=== PATIENT | male | born 1930 | race Caucasian/White ===

== ENCOUNTER 2018-06-28 13:58 | Inpatient (IN) ==
--- NOTE | 2018-06-28 14:19 | EKG Report ---
Test Performed on : 06/28/2018 2:13:28 PM Test Reason : SOB Blood Pressure : / mmHG Vent. Rate : 066 BPM Atrial Rate : 288 BPM P-R Int : 000 ms QRS Dur : 148 ms QT Int : 478 ms P-R-T Axes : 000 102 092 degrees QTc Int : 501 ms Atrial fibrillation. Right bundle branch block Abnormal ECG When compared with ECG of 21-MAY-2018 07:10, (Unconfirmed) Previous ECG has undetermined rhythm, needs review QRS axis shifted right Criteria for Inferior infarct are no longer present Nonspecific T wave abnormality has replaced inverted T waves in Inferior leads Nonspecific T wave abnormality, worse in Lateral leads Unconfirmed Result
--- NOTE | 2018-06-28 14:41 | Diag Imaging Result Doc PS360 ---
EXAM: FLAT/UPRIGHT ABD/1 VIEW CHEST 06/28/2018 HISTORY: SOB/CONSTIPATION TECHNIQUE: Flat and upright abdomen with PA chest COMMENT: The bowel gas pattern is unremarkable. There is a moderate amount of stool present in the colon. This has improved since 06/18/2018. There is a fairly large left pleural effusion. This was also the case at the time the previous study of 06/18/2018. There is a smaller effusion or pleural thickening on the right and there is bibasilar opacity which may include pneumonia. The heart size appears slightly enlarged. IMPRESSION: 1. Improved constipation. 2. Left pleural effusion and bibasilar pneumonia particularly on the left. Electronically signed by José Antonio Jacobson 06/28/2018 2:39 PM
[2018-06-28 15:06] LABS: BASO# 0.03 X1000 (0.0-0.2); BASO% 0.5 % (0.0-0.8); EOS# 0.02 X1000 (0.0-0.7); EOS% 0.4 % (0.0-10.0); HEMATOCRIT 33.7 % (42.0-52.0); HEMOGLOBIN 10.7 g/dL (14.0-18.0); LYMPH# 0.59 X1000 (1.2-3.4); LYMPH% 10.3 % (20.5-51.1); MCH 35.1 PG (27-31); MCHC 31.8 g/dL (33-37); MCV 110.5 FL (81-99); MONO# 0.26 X1000 (0.11-0.59); MONO% 4.6 % (1.7-9.3); MPV 9.3 FL (7.4-10.4); NEUT# 4.81 X1000 (1.4-6.5); NEUT% 84.2 % (42.2-75.2); PLT 170 X1000 (130-400); RBC 3.05 XMIL (4.7-6.1); RDW 13.9 % (11.5-14.5); WBC 5.71 X1000 (4.8-10.8)
[2018-06-28 15:08] LABS: INR 1.37
[2018-06-28 15:09] LABS: ALB/GLOB RATIO 1.3; ALBUMIN 3.6 g/dL (3.5-5.0); CALCIUM 8.6 mg/dL (8.8-10.2); CREATININE 3.2 mg/dL (0.7-1.2); POTASSIUM 4.4 mmol/L (3.5-5.1); PTT 37.6 Seconds (22.3-41.8); TOTAL BILIRUBIN 0.19 mg/dL (0.20-1.00); TOTAL PROTEIN 6.4 g/dL (6.3-8.3)
--- NOTE | 2018-06-28 17:50 | ED EKG INTERP ---
This chart was entered by Nilda Hendricks Scribe, acting as scribe for Shelby Keller MD. EKG Interpretation - EKG Time of EKG reading by physician:: 14:13 EKG Read and Signed by:: Shelby Keller EKG Interpretation (*Must complete 3 of following elements*): Abnormal Rate: 66 Rhythm: atrial fibrillation QRS: RBB Comments: abnormal ECG Attestation - Physician/ ELINA Attestation The physician spent face to face time with patient:: No Advanced Practice Provider documentation review:: Supervising physician onsite and consulted in the evaluation and care of this patient. The physician did not have a face to face encounter with the patient. This chart was documented by the indicated scribe, (Nilda Hendricks Scribe) and accurately reflects the services I performed and decisions made by me, Shelby Keller MD, as attested by the provider's signature.
--- NOTE | 2018-06-28 20:48 | PROVIDER DOCUMENTATION ---
This chart was entered by Jada García Scribe, acting as scribe for Elijah Dale MD. HPI-General Adult - General Chief Complaint: Shortness of Breath Stated Complaint: SHORTNESS OF BREATH / CONSTIPATION Time Seen by Provider: 06/28/18 19:17 Source: patient Allergies/Adverse Reactions: Patient Allergies Allergy/AdvReac Type Severity Reaction Status Date / Time metronidazole [From Flagyl] Allergy Intermediate agitated Verified 05/21/18 07: 07 Metronidazole HCl * Allergy Intermediate agitated Verified 05/21/18 07:07 [From Flagyl] lorazepam [From Ativan] AdvReac Severe agitated Verified 05/21/18 07:07 Sulfa (Sulfonamide AdvReac Unknown Unknown Verified 05/21/18 07:07 Antibiotics) Home Medications: Home Medication List Medication Instructions Recorded Confirmed Last Taken Type Metoprolol Succinate E.r. [Toprol 50 mg PO HS 06/05/12 05/21/18 03/23/17 History Xl] Amiodarone HCl 1 tab PO QAM 03/24/17 05/21/18 03/24/17 History Amlodipine [Norvasc] 10 mg PO QAM 03/24/17 05/21/18 03/24/17 History Cholecalciferol (Vitamin D3) 2,000 unit PO QAM 03/24/17 05/21/18 03/24/17 History [D3-2000] Folic Acid 1 mg PO QAM 03/24/17 05/21/18 03/24/17 History Warfarin [Coumadin] 4 mg PO DAILY 10/15/17 05/21/18 Unknown History Allopurinol 100 mg PO BID 05/21/18 05/21/18 Unknown History Prednisone 5 mg PO DIRECTED 05/21/18 05/21/18 Unknown History - History of Present Illness -Gen Adult Nature of Presenting Problems: Pt is 87/m presenting to ED w/ RUQ pain and SOB. Pt is on dialysis and had treatment yesterday . Pt is on O2 at home. Patient has been constipated x 2 weeks and has been given several medications including magnesium citrate and miralax without improvement. Location of Pain/Injury: reports: abdomen (RUQ) Pain Radiation: reports: no radiation Quality of Pain: reports: aching Severity: reports: moderate Onset/Duration: reports: just prior to arrival Timing: reports: still present Context/Activities at Onset: reports: none Modifying Factors: improves with: nothing Associated Symptoms: reports: denies symptoms. denies: diarrhea, nausea, vomiting Similar Symptoms Previously?: No Recently seen or treated by another doctor?: No Review of Systems - Adult - REVIEW OF SYSTEMS - ADULT Constitutional: reports: no symptoms reported. denies: chills, fever Eyes: reports: no symptoms reported Ears, Nose, Mouth & Throat: reports: no symptoms reported Cardiovascular: reports: no symptoms reported. denies: chest pain, edema Respiratory: reports: shortness of breath. denies: cough, wheezing Gastrointestinal: reports: abdominal pain. denies: diarrhea, nausea, vomiting Genitourinary: reports: no symptoms reported Musculoskeletal: reports: no symptoms reported Integumentary: reports: no symptoms reported Neurological: reports: no symptoms reported. denies: dizziness/vertigo, headache/migraines Psychiatric: reports: no symptoms reported Endocrine: reports: no symptoms reported Hematologic/Lymphatic: reports: no symptoms reported Allergic/Immunologic: reports: no symptoms reported All Other Systems: Reviewed and Negative Past History - Adult - PAST MEDICAL HISTORY-ADULT Review of Records: reports: Old Records Reviewed, Nursing Assessment Review, Medications Reviewed, Social history reviewed & non-contributory. Major Childhood Illnesses: reports: denies history Cardiovascular: reports: cardiac disease, A-Fib, HTN, hyperlipidemia Respiratory: reports: denies history Gastrointestinal: reports: denies history Obstetrical/Gynecological: reports: denies history Genitourinary: reports: dialysis, kidney disease (nephrotic syndrome) Musculoskeletal: reports: denies history Neurological: reports: CVA Psychiatric: reports: denies history Endocrine/Immune: reports: Diabetes Other Conditions: reports: other cancer (skin cancer) - PRIOR SURGERIES/PROCEDURES Surgical/Procedure History: reports: cholecystectomy, indwelling device (AV dialysis shunt), hernia repair, back/neck, other (right carotid artery) - IMMUNIZATION STATUS Childhood Immunizations: See Nurse Assessment Flu Vaccine: See Nurse Assessment - FAMILY HISTORY Family History: reviewed, not pertinent - SOCIAL HISTORY Smoking: quit greater than 1 year Substance Use: none/never Alcohol Use Frequency: never Living Situation: family Physical Exam-General - PHYSICAL EXAM-ADULT Initial Vital Signs Reviewed: Yes - CONSTITUTIONAL General Appearance: alert, thin ("frail"), other (frail looking patient) - EYES Eyes: PERRL/EOMI - HEAD, EARS, NOSE, MOUTH & THROAT HENMT: normocephalic/atraumatic, moist mucous membranes, normal ENT inspection - NECK Neck: non-tender, full range of motion, supple, normal inspection - RESPIRATORY Respiratory: chest non-tender, lungs clear, other (decreased breath sounds bilaterally) - CARDIOVASCULAR Cardiovascular: normal peripheral pulses, regular rate, rhythm, other (trace edema) - GASTROINTESTINAL (ABDOMEN) Abdominal Exam: normal bowel sounds, soft, tenderness (mild in RUQ) - LYMPHATIC Lymphatic: no adenopathy - MUSCULOSKELETAL Back Exam: normal inspection, no CVA tenderness, no vertebral tenderness, CVA tenderness - SKIN Integumentary: normal color, normal turgor, warm/dry - NEUROLOGIC Neurologic: other (hearing deficit) - PSYCHIATRIC Psych/Mental Status: oriented x 3 Progress - PLAN OF CARE/RESULTS Progress/Plan/Lab Results: Vital Signs - 8 hr 06/28/18 14:04 Temperature 97.4 F L Pulse Rate 67 Respiratory Rate 18 Blood Pressure 140/51 O2 Sat by Pulse Oximetry 94 L Laboratory Results - last 24 hr 06/28/18 06/28/18 06/28/18 14:22 14:22 14:22 WBC 5.71 RBC 3.05 L Hgb 10.7 L Hct 33.7 L MCV 110.5 H MCH 35.1 H MCHC 31.8 L RDW Std Deviation 13.9 Plt Count 170 MPV 9.3 Neut % (Auto) 84.2 H Lymph % (Auto) 10.3 L Bowman % (Auto) 4.6 Eos % (Auto) 0.4 Baso % (Auto) 0.5 Neut # (Auto) 4.81 Lymph # (Auto) 0.59 L Bowman # (Auto) 0.26 Eos # (Auto) 0.02 Baso # (Auto) 0.03 PT INR PTT (Actin FS) Sodium 138 Potassium 4.4 Chloride 99 Carbon Dioxide 29 Anion Gap 10 BUN 20 Creatinine 3.2 H Estimated GFR/1.73 m2 18 BUN/Creatinine Ratio 6 Glucose 180 H Calculated Osmolality 283 Calcium 8.6 L Total Bilirubin 0.19 L AST 11 ALT 8 L Alkaline Phosphatase 138 H Creatine Kinase 20 L Troponin T [place]w-[place]-H[place]jrwutcnfu Pe[place] 43368 H Total Protein 6.4 Albumin 3.6 Globulin 2.8 Albumin/Globulin Ratio 1.3 Amylase 113 Lipase 63 H 06/28/18 06/28/18 14:22 14:22 WBC RBC Hgb Hct MCV MCH MCHC RDW Std Deviation Plt Count MPV Neut % (Auto) Lymph % (Auto) Bowman % (Auto) Eos % (Auto) Baso % (Auto) Neut # (Auto) Lymph # (Auto) Bowman # (Auto) Eos # (Auto) Baso # (Auto) PT 18.0 H INR 1.37 PTT (Actin FS) 37.6 Sodium Potassium Chloride Carbon Dioxide Anion Gap BUN Creatinine Estimated GFR/1.73 m2 BUN/Creatinine Ratio Glucose Calculated Osmolality Calcium Total Bilirubin AST ALT Alkaline Phosphatase Creatine Kinase Troponin T 0.027 Wvi-X-Dfkzrtvktvj Pept Total Protein Albumin Globulin Albumin/Globulin Ratio Amylase Lipase Orders Category Date Time Status Cardiac Monitoring DIRECTED Care 06/28/18 14:11 Active Oxygen Therapy- ED Nursing DIRECTED Care 06/28/18 14:11 Active Saline Loc DIRECTED Care 06/28/18 14:18 Active Saline Loc NOW Care 06/28/18 14:11 Active NPO Diet 06/28/18 14:18 Active flat [FLAT/UPRIGHT ABD/1 VIEW CHEST] [RAD] Stat Exams 06/28/18 14:19 Completed AMYLASE [CHEM] Stat Lab 06/28/18 14:22 Completed CBC WITH ELECTRONIC DIFF [HEME] Stat Lab 06/28/18 14:22 Completed CK PROFILE [SP CHEM] Stat Lab 06/28/18 14:22 Completed COMPREHENSIVE METABOLIC PANEL [CHEM] Stat Lab 06/28/18 14:22 Completed LIPASE [CHEM] Stat Lab 06/28/18 14:22 Completed PRO B-NATRIURETIC PEPTIDE Stat Lab 06/28/18 14:22 Completed PROTIME WITH INR [COAG] Stat Lab 06/28/18 14:22 Completed PTT [COAG] Stat Lab 06/28/18 14:22 Completed TROPONIN T Stat Lab 06/28/18 14:22 Completed CP/SOB/Palp >45 yrs of Age Stat Oth 06/28/18 14:11 Ordered EKG [EKG] Stat Ther 06/28/18 14:11 Draft EKG [EKG] Stat Ther 06/28/18 19:28 Ordered Result Diagrams: 06/28/18 14:22 06/28/18 14:22 - XRAY 1 XRAY Study: Chest, Abdomen Impression: Abnormal ( EXAM: FLAT/UPRIGHT ABD/1 VIEW CHEST 06/28/2018 HISTORY: SOB/CONSTIPATION TECHNIQUE: Flat and upright abdomen with PA chest COMMENT: The bowel gas pattern is unremarkable. There is a moderate amount of stool present in the colon. This has improved since 06/18/2018. There is a fairly large left pleural effusion. This was also the case at the time the previous study of 06/18/2018. There is a smaller effusion or pleural thickening on the right and there is bibasilar opacity which may include pneumonia. The heart size appears slightly enlarged. IMPRESSION: 1. Improved constipation. 2. Left pleural effusion and bibasilar pneumonia particularly on the left. Electronically signed by José Antonio Jacobson 06/28/2018 2:39 PM 06/28/18 2468 Interpreting Physician: José Antonio Jacobson MD Dictated Date/Time: 4723) - CONSULTS/PCP/HOSPITALIST Notification #1 *Consult/PCP/Hospitalist*: Dr. Leija Time Discussed: 20:46 Consult Disposition: Admit Departure - Departure Date of Disposition Decision: 06/28/18 Time of Disposition Decision: 20:47 DIAGNOSIS: ESRD (end stage renal disease) on dialysis Constipation Qualifiers: Constipation type: unspecified constipation type Qualified Code(s): K59.00 - Constipation, unspecified Pneumonia Qualifiers: Pneumonia type: due to unspecified organism Laterality: unspecified laterality Lung location: unspecified part of lung Qualified Code(s): J18.9 - Pneumonia, unspecified organism Disposition: ADMITTED INPATIENT 09 Certified Medical Emergency: Emergent Condition: Serious - Critical Care Note This patient required my direct & personal management of CC.: No Attestation - Physician/ ELINA Attestation Patient care was provided by Advanced Practice Provider:: No The physician spent face to face time with patient:: Yes Advanced Practice Provider documentation review:: Supervising physician onsite and consulted in the evaluation and care of this patient. The physician did have a face to face encounter with the patient. This chart was documented by the indicated scribe, (Jada García Scribe) and accurately reflects the services I performed and decisions made by me, Elijah Dale MD, as attested by the provider's signature.
[2018-06-28] MEDS ORDERED: MORPHINE IV ONE (21:30)
[2018-06-28] MEDS ORDERED: ZOFRAN IV PRN (22:01)
[2018-06-28] MEDS: ZOSYN 3.375 GM in NS 50 ML IV SCH (22:50)
[2018-06-29] MEDS: ZOSYN 3.375 GM in NS 50 ML IV SCH ×2 (03:40→10:45)
--- NOTE | 2018-06-29 03:52 | HISTORY AND PHYSICAL ---
PRIMARY CARE PHYSICIAN: Dr. Carr. CHIEF COMPLAINT: Constipation and back pain. HISTORY OF PRESENTING ILLNESS: An 87-year-old elderly male with a history of end-stage renal disease, hypertension, CVA, chronic atrial fibrillation, diabetes mellitus type 2 and gout, who had presented to the emergency department with several days history of having back pain and also constipation for the past 2 weeks or so. The patient states that he was not feeling well. The patient apparently had imaging done in the ED which did show left pleural effusion and bibasilar pneumonia and also constipation. Due to his presenting symptoms, it was thought that he would need admission for further management. At the time of my examination, patient denied any headache, fever, chills, chest pain, hemoptysis or any weight changes, but complained of constipation, and shortness of breath and back pain. PAST MEDICAL HISTORY: Includes end-stage renal disease, hypertension, CVA, chronic atrial fibrillation, diabetes mellitus type 2, gout, hyperlipidemia. PAST SURGICAL HISTORY: Cholecystectomy, back surgery, cataract surgery, right carotid endarterectomy, right forearm AV fistula. ALLERGIES: Ativan, metronidazole. CURRENT MEDICATIONS: Include the following: Allopurinol 100 mg p.o. b.i.d., amiodarone 200 mg p.o. q.a.m., amlodipine 10 mg p.o. q.a.m., folic acid 1 mg p.o. q.a.m., metoprolol 50 mg p.o. at bedtime, prednisone 5 mg as directed, warfarin 4 mg p.o. daily. SOCIAL HISTORY: He is a former smoker. History of alcohol use in the past. Denies any illicit drug use. FAMILY HISTORY: Positive for coronary artery disease in father. REVIEW OF SYSTEMS: A 14 point review of systems as listed in HPI. Other systems negative. PHYSICAL EXAMINATION: GENERAL: Cooperative, friendly elderly male. He is resting more comfortably now. VITAL SIGNS: Temperature 97.4 degrees, pulse 67, respiration 18, blood pressure 140/51. HEENT: Atraumatic, normocephalic. Extraocular movements intact. PERRLA. NECK: No masses. CHEST: Bibasilar rales. CARDIOVASCULAR: Irregular. ABDOMEN: Soft. Positive bowel sounds. EXTREMITIES: Trace edema. NEUROLOGIC: He is awake, alert, oriented x3. GENITOURINARY: No bladder distention. SKIN: Warm. LABORATORIES AND STUDIES: WBCs 5.71, hemoglobin 10.7, hematocrit 33.7, platelets 170,000. INR is 1.37. Sodium 138, potassium 4.4, chloride 99, CO2 is 29, BUN is 20, creatinine is 3.2, glucose is 180. ProBNP is 30,951. Troponin 0.27. Abdominal x-ray shows constipation, left pleural effusion with bibasilar pneumonia. ASSESSMENT: This is an 87-year-old elderly male with a history of end-stage renal disease, hypertension, cerebrovascular accident, chronic atrial fibrillation and diabetes mellitus type 2, who had presented to emergency department with 2 weeks history of constipation and also having back pain. He was evaluated in the emergency department. He had imaging done which did show suspicion for pneumonia. Due to his presenting symptoms, he will need admission for further management. 1. Probable pneumonia with left pleural effusion. 2. Constipation. 3. End-stage renal disease. 4. Chronic atrial fibrillation. 5. Hypertension. 6. Diabetes mellitus type 2. PLAN: 1. We will admit patient to medical floor with telemetry. 2. We will check blood cultures. Start patient on IV antibiotics. 3. Continue with bowel regimen and start enemas with soap suds. 4. Consult Nephrology for dialysis. 5. Continue with anticoagulation with Coumadin. Monitor ProTime and INR. 6. We will monitor blood pressure closely and resume antihypertensive agents. 7. Put patient on glycemic protocol with sliding scale insulin regimen. 8. Put patient on DVT prophylaxis with SCD also. 9. We will continue to follow, and reassess and make further recommendation based on patient's clinical course. cc: Santi Leija MD
[2018-06-29 07:10] LABS: BASO# 0.03 X1000 (0.0-0.2); BASO% 0.5 % (0.0-0.8); EOS# 0.19 X1000 (0.0-0.7); EOS% 3.4 % (0.0-10.0); HEMATOCRIT 32.5 % (42.0-52.0); HEMOGLOBIN 10.2 g/dL (14.0-18.0); IMM GRAN# 0.02 X1000 (0.0-0.04); IMM GRAN% 0.4 % (0.0-0.5); LYMPH# 0.83 X1000 (1.2-3.4); LYMPH% 14.8 % (20.5-51.1); MCHC 31.4 g/dL (33-37); MCV 108.3 FL (81-99); MONO% 8.9 % (1.7-9.3); MPV 9.6 FL (7.4-10.4); NEUT# 4.03 X1000 (1.4-6.5); PLT 177 X1000 (130-400); RDW 13.6 % (11.5-14.5)
[2018-06-29 07:14] LABS: INR 1.46; PROTIME 18.8 Seconds (11.0-16.0)
[2018-06-29] MEDS ORDERED: NS 2,000 ML MISC PRN (07:21)
[2018-06-29] MEDS ORDERED: HEPARIN IV PRN (07:21)
[2018-06-29] MEDS ORDERED: TIGHT: 0.2 ML/HR FOR DIALYSIS MISC PRN (07:21)
[2018-06-29] MEDS: HUMULIN R SUBQ SCH ×4 (07:34→22:40)
[2018-06-29 07:45] LABS: CALCIUM 8.7 mg/dL (8.8-10.2); CREATININE 3.7 mg/dL (0.7-1.2); POTASSIUM 3.7 mmol/L (3.5-5.1)
--- NOTE | 2018-06-29 10:33 | Diag Imaging Result Doc PS360 ---
EXAM: CHEST-2 VIEWS HISTORY: pneumonia TECHNIQUE: Chest two views COMPARISON: 06/28/2018 FINDINGS: There is a moderate-sized left pleural effusion and small right-sided pleural effusion. These are similar to the prior exam. Cardiomegaly and pulmonary edema remain. Pulmonary edema is actually more prominent. There is basilar atelectasis and there may be underlying infiltrates as well. IMPRESSION: Mild interval worsening. Electronically signed by Shabbir Boateng 06/29/2018 10:31 AM
--- NOTE | 2018-06-29 10:46 | PROGRESS NOTE ---
DATE: 06/29/2018 SUBJECTIVE: He complained of constipation and back pain. He is a patient of Dr. Carr, who presented yesterday, an 87 year old with history of end-stage renal disease, hypertension, history of CVA, chronic atrial fib, diabetes mellitus type 2 and gout. He presented to the emergency room with a several-day history of having back pain and constipation. He had not had a bowel movement in 2 weeks. He was not feeling well. Apparently, he had imaging done in the emergency room that showed a left pleural effusion, bibasilar pneumonia or atelectasis, and also constipation. I thought he would need admission for further examination. PAST MEDICAL HISTORY: This includes end-stage renal disease, hypertension, CVA, chronic atrial fib, diabetes mellitus type 2, gout and hyperlipidemia. PAST SURGICAL HISTORY: Cholecystectomy, back surgery, cataract surgery, right carotid endarterectomy, right forearm AV fistula. OBJECTIVE: General: On exam today he is feeling more comfortable. He thinks he has had a bowel movement as the result of an enema. He feels better than yesterday. He is supposed to go to dialysis today. Vital Signs: Temperature 98.2 degrees, pulse 66, respirations 18, blood pressure 118/48. Eyes: Pupils are equal and round. Lungs: Clear in all lung zepeda. Cardiovascular exam: Regular rhythm and rate without murmur or S3. Abdomen: Soft. Skin: Warm and dry. ASSESSMENT AND PLAN: 1. Probable pneumonia and left pleural effusion. 2. Constipation. 3. End-stage renal disease. 4. Chronic atrial fibrillation. 5. Hypertension. 6. Diabetes mellitus type 2. We will continue his present antibiotics. He seems like he is more comfortable. He is on Zosyn 3.375 g IV q. 6 hours, and he does get dialysis. May need to adjust that dose for renal dose, but we will follow his blood sugars. I think I will repeat another chest x-ray this afternoon and see how he feels. cc: Neeraj Merlos MD
--- NOTE | 2018-06-29 16:18 | NEPHROLOGY PROGRESS NOTE ---
DATE: 06/29/2018 SUBJECTIVE: He states he feels better than he did yesterday. His abdominal pain is improved. He denies shortness of breath. He states he has had a bowel movement finally. OBJECTIVE: Vital Signs: Blood pressure 118/48, heart rate 66, respirations 18, afebrile. Generally: No acute distress. Skin: Warm and dry. Conjunctivae are pink. Neck: Neck veins are not distended. Heart: Regular with S4. Systolic murmur. Lungs: Have equal breath sounds. Shallow. No crackles or wheezes. Abdomen: Soft. Minimally tender. Normal bowel sounds. Extremities: No edema, clubbing, or cyanosis. IMPRESSION: 1. Chronic kidney disease, 5D. He will have his routine hemodialysis today. He is euvolemic and electrolytes and acid-base are all in target. 2. Anemia is within target. 3. Abdominal pain secondary to constipation, seems to be improved. 4. He was diagnosed with possible pneumonia and he is receiving empiric broad-spectrum antibiotics, Zosyn 3.375 q.6 h. I will adjust that as appropriate for his renal function. cc: Jai Shelley MD
[2018-06-29] MEDS: ZOSYN 2.25 GM in NS 50 ML IV SCH (18:34)
[2018-06-30] MEDS: ZOSYN 2.25 GM in NS 50 ML IV SCH ×3 (03:02→18:45)
[2018-06-30 06:31] LABS: INR 1.65; PROTIME 20.7 Seconds (11.0-16.0)
[2018-06-30] MEDS: HUMULIN R SUBQ SCH ×4 (06:32→22:45)
[2018-06-30] MEDS ORDERED: FLEET MINERAL OIL ENEMA PR ONE (09:50)
--- NOTE | 2018-06-30 10:12 | PROGRESS NOTE ---
DATE: 06/30/2018 SUBJECTIVE: Mr. Feliciano remains afebrile. He does feel better. He still has discomfort in the right upper quadrant. He has not had any more bowel movements since yesterday. He did have his dialysis yesterday. His breathing is comfortable. OBJECTIVE: Vital Signs: He remains afebrile. Temperature is 98.3, pulse 80, respirations 24, and blood pressure 141/67. HEENT: Pupils are equal and round. Lungs: Clear in all lung zepeda. Cardiovascular: Regular rhythm and rate without murmur or S3. Abdomen: Soft. The abdomen is really nontender. He is uncomfortable in the right upper quadrant. Skin: Warm and dry. DIAGNOSTIC DATA: Chest x-ray: Mild interval worsening. Moderate-sized left pleural effusion. Small right-sided pleural effusion. He had an abdominal x-ray done on the and there was improved constipation, left pleural effusion, and bibasilar atelectasis versus pneumonia was reported. ASSESSMENT AND PLAN: 1. Constipation. I am going to see if we can given him maybe some more enemas and we will see if we can repeat a KUB this afternoon. 2. End-stage renal disease. Continue dialysis, I think it is Monday, Monday, and Fridays. Volume status, electrolytes, and acid base look good. 3. Anemia is on target. We will continue his broad-spectrum antibiotics on the question of whether he has pneumonia and repeat another chest x-ray in the morning. cc: Neeraj Merlos MD
[2018-06-30] MEDS: COLACE PO SCH ×2 (11:25→23:08)
[2018-06-30] MEDS: MIRALAX PO SCH ×2 (11:25→23:08)
[2018-06-30] MEDS: LACTULOSE PO SCH ×2 (11:25→23:08)
[2018-06-30] MEDS: TOPROL XL PO SCH (11:26)
[2018-06-30] MEDS: NORVASC PO SCH (11:26)
[2018-06-30] MEDS: CORDARONE PO SCH (11:26)
[2018-06-30] MEDS: ZYLOPRIM PO SCH (11:38)
[2018-06-30] MEDS ORDERED: COUMADIN PO SCH (21:00)
--- NOTE | 2018-06-30 21:10 | NEPHROLOGY PROGRESS NOTE ---
DATE: 06/30/2018 SUBJECTIVE: He states that he was out of bed for 4 hours today. He ate his lunch and is able to recite to me what he did consume. He states he has had at least 2 bowel movements. Symptoms are improved. OBJECTIVE: Vital Signs: Blood pressure 125/61, heart rate 75, respirations 12, afebrile. Generally: No acute distress. Skin: Warm and dry. Eyes: Conjunctivae are pink. Heart: Regular with a murmur. Lungs: Equal. No crackles. Abdomen: Soft, nontender. Less distended. Bowel sounds are present. Extremities: No edema, clubbing or cyanosis. IMPRESSION: Chronic kidney disease 5B. Euvolemic. He is improving clinically. No changes today. cc: Jai Shelley MD
[2018-07-01] MEDS: ZOSYN 2.25 GM in NS 50 ML IV SCH ×3 (01:55→11:07)
[2018-07-01] MEDS: HUMULIN R SUBQ SCH ×2 (06:24→12:26)
[2018-07-01 06:52] LABS: INR 1.47
[2018-07-01] MEDS: CORDARONE PO SCH (09:15)
[2018-07-01] MEDS: NORVASC PO SCH (09:15)
[2018-07-01] MEDS: COLACE PO SCH (09:15)
[2018-07-01] MEDS: TOPROL XL PO SCH (09:15)
[2018-07-01] MEDS: LACTULOSE PO SCH (09:15)
[2018-07-01] MEDS: MIRALAX PO SCH (09:15)
[2018-07-01] MEDS: ZYLOPRIM PO SCH (09:15)
--- NOTE | 2018-07-01 09:17 | Diag Imaging Result Doc PS360 ---
EXAM: CHEST-2 VIEWS - 07/01/2018 HISTORY: pneumonia TECHNIQUE: Chest two views COMPARISON: 06/29/2018 FINDINGS: There is cardiomegaly. There are small right and moderate left pleural effusions similar to prior. There has been some decrease in atelectasis or infiltrate at the right base. There is no pneumothorax identified. IMPRESSION: Persistent small right and moderate left pleural effusions. Some decrease in atelectasis or infiltrate at right base. Electronically signed by Conner Lua 07/01/2018 9:14 AM
[2018-07-01 14:00] VITALS: BP 132/62
--- NOTE | 2018-07-01 14:06 | DISCHARGE SUMMARY ---
ADMISSION DATE: 06/28/2018 DISCHARGE DATE: 07/01/[address] Roshni Carr. 87-year-old with history of end-stage renal disease, hypertension, CVA, chronic atrial fibrillation, diabetes mellitus type 2 and gout who presented to the emergency room with several day history of having back pain and constipation for over 2 weeks. The patient said he was not feeling well. Had some right side discomfort and right upper quadrant discomfort. In the emergency room x-ray showed a left pleural effusion, bibasilar atelectasis and some constipation so he was admitted. He underwent dialysis while he is here and we gave him some enemas and also some cathartics. He seemed to have pretty good results and felt much better. X-ray this morning persistent small right, moderate left pleural effusion, some atelectasis but no sign clinically he was having pneumonia, his volume status looked good, electrolytes look good, as far as his anemia is stable, hematocrit 32, hemoglobin 10 and so he wanted to go home. Plan to discharge him home. Continue his home medicines. I did add some things for his bowels so he will be on Zyloprim 100 mg a day, amiodarone 200 mg a day, Norvasc 5 mg a day, Colace we added 100 mg b.i.d., lactulose 30 mL p.o. b.i.d. if he if he is constipated will continue that for now, Toprol- XL 100 mg daily and will stop his Zosyn, gets MiraLAX 17 g he can take that twice a day as well and can back that down depending on how he is doing, his Coumadin is at 5 mg at bedtime. Note that his pro time was 19 so will continue at 5 mg, recommend he get his pro time checked once a week for the next several weeks make sure it is not changing especially with the addition of these medications. He will follow up with Dr. Shelley and Dr. Carr. cc: Neeraj Merlos MD
== END 2018-07-01 14:43 | disposition home or self-care (01) | DRG 391 ==
LOC: ED 13:58 → 4N 21:52 → SUATTDRO 21:52
PROVIDERS: ATTEND Emergency Medicine
CPT/HCPCS: 71020; 71046; 74022; 80048; 80053; 82150; 82550; 82948; 83690; 83880; 84484; 85025; 85610; 85730; 87040; 93005; 94761; 96365; 99285; A9270; J1644; J2543; J7030; XXXXX